=== PATIENT | female | born 1935 | race African-American/Black ===

== ENCOUNTER 2019-10-09 17:13 | Inpatient (IN) | payer OTHER ==
[~2019-10-09] VITALS: Ht 160 cm; Wt 72.6 kg
[~2019-10-09 17:13] MED LIST: APAP650 PO; ASPIR 8181 MG PO; CEFUROXIME250 MG PO; COLACE100 MG PO; FOLIC ACID1 MG PO; HYDROCHLOROTH12.5 M1 PO; LISINOPRIL10 MG PO; LOPRESSOR50 PO; MAALOX ADVANCE355 M1 PO; METFORMIN HCL500 MG; MIRALAX17 GM; ONDANSETRON HCL4 M2 PO; SYNTHROID125 MC1 PO; UNICOMPLEX M TA1 TA1 PO; VITAMINC500 PO
[2019-10-09 17:17] VITALS: BP 131/74
[2019-10-09 17:38] LABS: URINE BLOOD TRACE (Negative); URINE CLARITY CLOUDY; URINE COLOR YELLOW; URINE GLUCOSE-RANDOM* NEGATIVE (Negative); URINE KETONES TRACE (Negative); URINE PROTEIN (DIPSTICK) 1+ (Negative); URINE SPECIFIC GRAVITY >= 1.030 (1.005-1.035); URINE UROBILINOGEN 0.2 E.U./dl (0.2-1.0)
[2019-10-09 17:40] LABS: ICTOTEST (BILI CONFIRMATORY) Negative (Negative); URINE BILIRUBIN NEGATIVE (Negative); URINE LEUKOCYTES-REFLEX 2+ (Negative); URINE NITRITE-REFLEX POSITIVE (Negative)
[2019-10-09 17:48] LABS: BACTERIA-REFLEX >30 Many /HPF (None Seen); CASTS None Seen /LPF (None Seen); SQUAMOUS 4-10 Moderate /LPF (0-3)
[2019-10-09 17:49] LABS: AMORPHOUS URATES Moderate /LPF (None Seen); URINE RBC 0-2 Rare /HPF (0-2)
[2019-10-09 17:51] LABS: AMP/METHAMP Negative (Negative); BARBITURATES Negative (Negative); BENZODIAZEPINES Negative (Negative); COCAINE Negative (Negative); METHADONE Negative (Negative); OPIATES Negative (Negative); PCP Negative (Negative)
[2019-10-09 18:00] LABS: ABSOLUTE NEUTROPHILS 4.4 thou/uL (1.4-8.2); BASOPHILS 1.4 % (0.0-2.0); EOSINOPHILS 1.1 % (0.0-3.0); HEMATOCRIT 37.5 % (37.0-47.0); HEMOGLOBIN 12.3 gm/dL (12.0-15.0); LYMPHOCYTES 35.3 % (24.0-44.0); MCH 32.1 pg (26.0-34.0); MCHC 32.7 g/dL (28.0-37.0); MONOCYTES 6.3 % (1.0-8.0); PLATELET COUNT 311 thou/uL (150-400); POLYS 55.9 % (36.0-66.0); RBC 3.83 mil/uL (4.20-5.00)
[2019-10-09 18:08] LABS: ANION GAP 13 mmol/L (7-16); BUN 32 mg/dL (7-18); CALCIUM 10.2 mg/dL (8.5-10.1); CHLORIDE 105 mmol/L (98-107); CO2 25 mmol/L (21-32); CREATININE 2.2 mg/dL (0.6-1.0); GLUCOSE 136 mg/dL (74-106); POTASSIUM 3.7 mmol/L (3.5-5.1); SODIUM 143 mmol/L (136-145)
[2019-10-09 18:19] LABS: ALBUMIN 3.8 g/dL (3.4-5.0); MAGNESIUM 1.8 mg/dL (1.8-2.4); SGOT 65 U/L (15-37); SGPT 82 U/L (30-65); TOTAL BILIRUBIN 0.2 mg/dL (<0.1-1.0); TOTAL PROTEIN 9.1 g/dL (6.4-8.2); TROPONIN-I <0.06 ng/mL (<0.06)
[2019-10-09 20:10] VITALS: BP 119/69
--- NOTE | 2019-10-09 20:18 | NUR ---
EKG HAND DELIVERED TO FLOOR BY ELY KAUR AT TIME OF TRANSFER. ANGEL CORRALES GIVEN REPORT.
[2019-10-09 20:28] VITALS: BP 119/69
[2019-10-09 20:50] VITALS: BP 138/114
[2019-10-09] MEDS ORDERED: VITAMIN D400 UNIT PO (23:34)
[2019-10-10] VITALS (7 sets, daily range): BP systolic 147–190; BP diastolic 66–94
--- NOTE | 2019-10-10 03:04 | NUR ---
Admission history and assessmetns completed. Careplan initiated. IVFluids infusing. High fall risks. Fall precautions in place.
--- NOTE | 2019-10-10 08:11 | NUR ---
chart review, pt up in bed, open eyes to calling of her name. pt a & self and location " need to get up and see what is happening"/hussein. noted from chart pt from [facility]. will cont following as needed for dc needs.
--- NOTE | 2019-10-10 15:11 | NUR ---
FAXED REFERRAL TO [facility] SPOKE WITH WILLIAM IN ADM SHE RECEIVED REFERRAL AND WILL REVIEW FOR SKILLED STAY PT RESIDES AT THEIR LTC UNIT. DP TO FOLLOW.
[2019-10-10 18:08] LABS: CHOLESTEROL 187 mg/dL (<200); HDL CHOLESTEROL 53 mg/dL (>40); LDL CHOLESTEROL 116 mg/dL (<100); TC:HDL 3.5 Ratio (Not establshd); TRIGLYCERIDE 92 mg/dL (<150); VLDL 18 mg/dL (<40)
--- NOTE | 2019-10-10 18:31 | NUR ---
PT WENT DOWN FOR MRI. PT IN ROOM NOW VISITING WITH FAMILY. PT MORE CONFUSED.REORIENTATION BEING IMPLEMENTED. PT FOLLOWS CERTAIN COMMANDS. FAMILY VISITING. WILL CONTINUE TO MONITOR.
[2019-10-10 19:04] LABS: FOLIC ACID > 100.0 ng/mL (8.6-58.9)
[2019-10-11] VITALS: BP 155/96
--- NOTE | 2019-10-11 01:28 | NUR ---
PT RESTING IN BED, FAMILY AT BEDSIDE. DAUGHTER ALSO CALLED TO REMIND STAFF PT HAS DEMENTIA. IVF INTACT, PT TALKING TO FAMILY AND SELF, STATEMENTS CLEAR BUT NOT ORGANIZED IN COMPLETE THOUGHTS. PT ORIENTED TO SELF. FOLLOWS SIMPLE DIRECTIONS. PT PULLED OUT IV X 2. KEY BED INSTALLER NOTIFIED. FEMALE EXTERNAL CATH INTACT. PT ABLE TO REPOSITION SELF IN BED, LLE WEAK, PT KICKING RLE AND GRABBING WITH BUE. BLUNTED AFFECT GOOD EYE CONTACT.
[2019-10-11 04:20] VITALS: BP 149/77
--- NOTE | 2019-10-11 06:00 | NUR ---
SEVERAL ATTEMPTS TO RESTART IV, WILL HAVE DAY SHIFT ATTEMPT PLACEMENT, SKIDDER AWARE, SEWER BUILDER AWARE.
[2019-10-11 07:15] VITALS: BP 169/90
[2019-10-11] MEDS ORDERED: LIPITOR40 MG PO (09:52)
[2019-10-11] MEDS ORDERED: CLOPIDOGREL75 MG PO (09:52)
[2019-10-11] MEDS ORDERED: CEFUROXIME250 MG PO (09:53)
--- NOTE | 2019-10-11 10:07 | 2DMMODE ---
[facility] [address] [place] [address] 2 D/M-MODE ECHOCARDIOGRAM Name: EARLINEPAWAN Room #: 360-P ADM IN M.R.#: [id number] Admission: 10/09/19 Attend Phys: Sarah Silva Discharge: Date of : 35 Report #: [id number] THIS REPORT FOR: //name// APPROVED REPORT Study performed: 10/11/2019 09:02:29 EXAM: Comprehensive 2D, Doppler, and color-flow Echocardiogram Patient Location: Bedside Room #: 360 Status: routine BSA: 1.76 HR: 71 bpm BP: 169/90 mmHg Rhythm: NSR Other Information Study Quality: Adequate Technically limited study due to unable to position pt. No patient cooperation. Indications CVA. Echo Enhancing Agent Indication: Rule out Shunt Agent(s) / Amount(s) Used: Agitated Saline 6 cc 2D Dimensions RVDd: 28.39 mm IVSd: 12.00 (7-11mm) LVOT Diam: 19.83 (18-24mm) LVDd: 36.00 mm PWd: 12.00 (7-11mm) LVDs: 23.30 (25-40mm) Aortic Root: 29.51 mm Volumes Left Atrial Volume (Systole) Single Plane 4CH: 46.82 mL Single Plane 2CH: 58.18 mL LA ESV Index: 32.00 mL/m2 Aortic Valve AoV Peak Tony.: 1.53 m/s AO Peak Gr.: 9.73 mmHg LVOT Max P.01 mmHg LVOT Max V: 1.00 m/s [facility] [address] [place] [address] 2 D/M-MODE ECHOCARDIOGRAM Name: PAWAN PATTEN Room #: 360-P [facility] IN [facility]#: [id number] Admission: 10/09/19 Attend Phys: Sarah Silva Discharge: Date of : 35 Report #: [id number] [id number] Vmax: 2.01 cm2 Mitral Valve E/A Ratio: 0.8 MV Decel. Time: 256.94 ms MV E Max Tony.: 0.63 m/s MV A Tony.: 0.84 m/s MV PHT: 74.51 ms IVRT: 101.50 ms Pulmonary Valve PV Peak Tony.: 0.96 m/s PV Peak Gr.: 3.66 mmHg Tricuspid Valve RAP Estimate: 5.00 mmHg Left Ventricle The left ventricle is normal size. There is normal LV segmental wall motion. Mild concentric left ventricular hypertrophy. Left ventricular systolic function is normal. LVEF is 65-70%. Mild diastolic dysfunction is present (impaired relaxation pattern). Right Ventricle The right ventricle is normal size. The right ventricular systolic function is normal. Atria Left atrium is at the upper limits of normal. No shunting noted by contrast bubble injection. The right atrium size is normal. Aortic Valve The aortic valve is normal in structure. Leaflets are sclerotic. No aortic regurgitation is present. There is no aortic valvular stenosis. Mitral Valve The mitral valve is normal in structure. There is no mitral valve regurgitation noted. No evidence of mitral valve stenosis. Tricuspid Valve The tricuspid valve is normal in structure. There is no tricuspid valve regurgitation noted. Unable to assess PA pressure. Pulmonic Valve Pulmonic valve is not well visualized. [facility] [address] [place] [address] 2 D/M-MODE ECHOCARDIOGRAM Name: EARLINEPAWAN [facility] [id number] Admission: 10/09/19 Attend Phys: Sarah Silva Discharge: Date of : 35 Report #: [id number] Great Vessels The aortic root is normal in size. Ascending aorta is not well visualized. IVC is normal in size and collapses >50% with inspiration. Pericardium There is no pericardial effusion. <Conclusion> The left ventricle is normal size. LVEF is 65-70%. Left atrium is at the upper limits of normal. The aortic valve is normal in structure. Leaflets are sclerotic. The mitral valve is normal in structure. The tricuspid valve is normal in structure. Pulmonic valve is not well visualized. There is no pericardial effusion. No shunting noted by contrast bubble injection. <ELECTRONICALLY SIGNED> By: Peng Yeager MD 10/11/19 1007 1007 [facility] Peng Yeager MD /INF
--- NOTE | 2019-10-11 10:56 | NUR ---
Pt off the floor for MRI
[2019-10-11 12:10] VITALS: BP 139/43
--- NOTE | 2019-10-11 12:59 | NUR ---
DISCHARGE ORDERS COMPLETED. PATIENT DISCHARGING TO [facility]. CHART COPY COMPLETED PER NETWORK CONTROL SUPERVISOR. DISCHARGE ORDERS AND DC SUMMARY FAXED TO [facility], TRANSPORTATION ARRANGED PER WILLIAM, [phone] HOURS. UNIT RN NOTIFIED, CONTACT NUMBER PROVIDED FOR REPORT. UNIT SW TO NOTIFY FAMILY.
--- NOTE | 2019-10-11 15:01 | EKG ---
[address] [address] ELECTROCARDIOGRAM REPORT Name: EARLINEPAWAN Room #: 360-P ADM IN M.R.#: [id number] Admission: 10/09/19 Attend Phys: Sarah Simon Discharge: Date of : 35 Report #: [id number] THIS REPORT FOR: //name// [facility] ED Test Date: 2019-10-09 Test Time: 18:21:35 Pat Name: PAWAN PATTEN Department: Room: 360 Gender: F Sole Splitter: ts : 1935 Requested By: Prashant English Order Number: [id number] MD: Monty Pierre Measurements Intervals [place] Rate: 93 P: 40 CT: 174 QRS: -6 QRSD: 67 T: 240 QT: 424 QTc: 528 Interpretive Statements Sinus rhythm Left atrial enlargement Borderline repolarization abnormality Compared to ECG 05/29/2018 20:25:46 Electronically Signed On 10-11-2019 15:00:29 STUDY LEAD by Monty Pierre [email or web address] <ELECTRONICALLY SIGNED> By: Monty Pierre MD 10/11/19 1500 182 20 Monty Pierre MD /SADI
[2019-10-11 15:35] VITALS: BP 158/83
--- NOTE | 2019-10-11 15:42 | NUR ---
SW reviewed chart and spoke with nursing and attending physician. Disharge orders/summary written earlier today by attending. SW spoke with pt's dtrReshma to provide update. Pt's granddtr requests to speak with physician regarding pt's status. Family states pt is not back to her baseline yet. Neuro following. SW requested attending physician to speak with pt's gradnddtr. Number provided. NEERAJ met with pt and Cash garzon, at bedside. Elvira states that pt is not back to her baseline and they have questions for the physicians. Pt's nurse contacted attending physician and neuro. Discharge cancelled for today. c4 planner updated [facility], who states they are able to accept pt back over the weekend if pt is ready for discharge. Pt's family updated by nursing. SW is following to assist as needed with discharge planning. [facility]-- Liaison: [phone]
[2019-10-11 19:30] VITALS: BP 140/68
--- NOTE | 2019-10-11 19:51 | NUR ---
1820 2 UNITS OF BLOOD TRANSUFSE, NO REACTION NOTED. PT DENIES ANY NEEDS. PT PROGRESSIVE TOWARDS POC.
--- NOTE | 2019-10-11 22:17 | NUR ---
PT SITTING IN BED WITH GREAT GRAND DAUGHTER AND GRAND DAUGHTER AT BEDSIDE. PT LAUGHING AND TALKING NON SENSICAL, HOLDING HANDS WITH FAMILY. SMILING EYES WIDE OPEN, MOVING BUE EXTREMITIES. REPOSITIONING LEGS INDEPENDENTLY. IVF INTACT, EXTERNAL FEMALE CATHETER INTACT. FAMILY ASKED TO NOTIFY NURSE WHEN THEY LEFT SO BED ALARM COULD BE TURNED BACK ON, FAMILY DID NOT. PT WAS SLEEPY AFTER FAMILY LEFT, BUT ABLE TO COMPLETE TASKS BY NURSE AND VERBALLY RESPOND BUT SHE DID NOT OPEN HER EYES. GRAND DAUGHTER HAD BEEN TALKING TO BOTH NURSES DURING SHIFT CHANGE IF PT HAD BEEN PUT BACK ON HER DEMENTIA MEDICATIONS, DAY NURSE VERBALIZED THAT PT HAD PRN ANTIPSYCHOTIC PRIOR TO MRI/MRA.
[2019-10-12 03:55] VITALS: BP 131/66
[2019-10-12 08:05] VITALS: BP 149/59
[2019-10-12 11:10] VITALS: BP 150/77
--- NOTE | 2019-10-12 11:24 | NUR ---
PT A&OX2. L SIDE WEAKNESS NOTED THOUGH SPEAKS AT TIMES. REQUIRES ASSIST TO EAT. INCONT OF URINE, EXTERNAL CATH IN PLACE. DC ORDERS RECEIVED TO RETURN TO [facility]. REPORT CALLED TO NURSE, DAUGHTER NOTIFIED AND WITH PT AT THIS TIME. IV REMOVED FROM R FA. TRANSPORTATION WILL SCALP TREATMENT OPERATOR PATIENT BETWEEN 1-1:30.
== END 2019-10-12 13:34 | DRG 64 ==
LOC: ER 17:13 → 3W 19:35 → EROBS 19:35 → 3W 20:30
PROVIDERS: Emergency Medicine; Psychiatry & Neurology Neurology; ADMIT Hospitalist
DX: I63.9 Cerebral infarction, unspecified (principal); G93.41 Metabolic encephalopathy; N39.0 Urinary tract infection, site not specified; N17.9 Acute kidney failure, unspecified; R47.01 Aphasia; I12.9 Hypertensive chronic kidney disease with stage 1 through stage 4 chronic kidney disease, or unspecified chronic kidney disease; N18.3 Chronic kidney disease, stage 3 (moderate); R13.10 Dysphagia, unspecified; Z66 Do not resuscitate; E03.9 Hypothyroidism, unspecified; E11.22 Type 2 diabetes mellitus with diabetic chronic kidney disease; K59.00 Constipation, unspecified; G30.9 Alzheimer's disease, unspecified; F02.80 Dementia in other diseases classified elsewhere, unspecified severity, without behavioral disturbance, psychotic disturbance, mood disturbance, and anxiety; Z90.12 Acquired absence of left breast and nipple; Z86.73 Personal history of transient ischemic attack (TIA), and cerebral infarction without residual deficits; Z79.899 Other long term (current) drug therapy
CPT/HCPCS: 10080; 10879